=== PATIENT | male | born 1975 | race Caucasian/White ===

== ENCOUNTER 2022-05-13 05:15 | Emergency (ER) | payer BC ==
[2022-05-13] MEDS ORDERED: ACETAMINOPHEN 500 MG TAB ONE (06:25)
[2022-05-13] MEDS ORDERED: CEFTRIAXONE 1000 MG/VIAL ONE (06:25)
[2022-05-13] MEDS ORDERED: MORPHINE 4 MG/ML SYR ONE (06:25)
[2022-05-13] MEDS ORDERED: dexAMETHasone 10 MG/ML VIAL ONE (06:25)
[2022-05-13] MEDS ORDERED: NA CHLORIDE 0.9% 1,000 ML ONE (06:26)
[2022-05-13] MEDS ORDERED: CLINDAMYCIN 900MG/D5W 900 MG/50 ML IVPB IV ONE (06:26)
[2022-05-13] MEDS ORDERED: ONDANSETRON 4 MG/2 ML VIAL ONE ×2 (06:26→07:39)
[2022-05-13 06:37] LABS: Absolute Lymphocytes (CBC) 2.3 K/uL (0.7-4.9); Hematocrit 43.1 % (39.6-49.0); Lymphocytes % 15.4 % (15.3-44.8); MCV 83.4 fL (80-100); MPV 7.2 fL (7.6-11.3); RBC Red Blood Cell Count 5.17 M/uL (4.33-5.43)
[2022-05-13 06:52] LABS: Albumin 3.3 g/dL (3.4-5.0); Bilirubin Total 0.5 mg/dL (0.2-1.0); Potassium 3.7 mmol/L (3.5-5.1); Protein, Total 8.3 g/dL (6.4-8.2)
[2022-05-13] MEDS ORDERED: FAMOTIDINE 20 MG/2 ML VIAL IV ONE (07:39)
--- NOTE | 2022-05-13 07:48 | RAD REPORT ---
EXAM DESCRIPTION: CT - Soft Tissue Neck W/Contr - 05/13/2022 7:12 am CLINICAL HISTORY: Neck pain with sore throat COMPARISON: None. TECHNIQUE: Computed axial tomography of the neck was obtained. 50 cc Isovue 300 was administered in travenously. Coronal and sagittal reconstruction was performed. All CT scans are performed using dose optimization technique as appropriate and may include automated exposure control or mA/KV adjustment according to patient size. FINDINGS: The left tonsil is enlarged. Is loculated 3 centimeter abscess surrounds the left tonsil e xtending inferiorly. The airway shifted towards the right. Remainder of the pharynx, larynx and subglottic trachea are unremarkable. The parotid, submandibular and thyroid glands appear unremarkable. Mild bilateral pleural neck lymphadenopathy probably is reactive in nature Mucus retention cyst left maxillary sinus. Fluid within the ethmoid and sphenoid sinuses. Mucous rete ntion cyst right maxillary sinus IMPRESSION: Left tonsillitis with 3 centimeter peritonsillar abscess the with 3 centimeter peritonsi llar abscess
--- NOTE | 2022-05-13 07:59 | ER ---
Nurse's Notes [facility] Name: Kevin Bowles Age: 46 yrs Sex: Male : 1975 Arrival Date: 05/13/2022 Time: 05:18 Bed 5 Private MD: Diagnosis: Peritonsillar abscess;Elevated white blood cell count Presentation: 05/13 05:45 Chief complaint: Patient states: he has had a sore throat x 3 days which is getting bb worse swallowing his saliva is like swallowing ground glass and he has not been able to eat or drink either, he is taking 2 extra strength tylenol every 4 hours for the pain. Coronavirus screen: At this time, the client does not indicate any symptoms associated with coronavirus-19. Ebola Screen: No symptoms or risks identified at this time. Initial Sepsis Screen: Does the patient meet any 2 criteria? No. Patient's initial sepsis screen is negative. Does the patient have a suspected source of infection? Yes: Other: sore throat. Risk Assessment: Do you want to hurt yourself or someone else? Patient reports no desire to harm self or others. Onset of symptoms was May 10, 2022. 05:45 Method Of Arrival: Ambulatory bb 05:45 Acuity: HUBERT 3 bb Historical: - Allergies: 05:48 Benadryl; bb - Home Meds: 05:48 None [Active]; bb - PMHx: 05:48 None; bb - PSHx: 05:48 None; bb - Immunization history:: Client reports having NOT received the Covid vaccine. - Social history:: Smoking status: Patient reports the use of cigarette tobacco products. Screenin:46 Abuse screen: Denies threats or abuse. Denies injuries from another. Nutritional ph screening: No deficits noted. Tuberculosis screening: No symptoms or risk factors identified. Fall Risk None identified. Assessment: 06:42 Pain: Complains of pain in throat Pain currently is 7 out of 10 on a pain scale. ke1 Respiratory: Airway is patent Respiratory effort is even, unlabored, Breath sounds are clear bilaterally. EENT: Throat is pink has enlarged tonsils. 07:45 Reassessment: Patient appears in no apparent distress at this time. Patient and/or ph family updated on plan of care and expected duration. Pain level reassessed. Patient is alert, oriented x 3, equal unlabored respirations, skin warm/dry/pink. Dr Naqvi at bedside. 08:30 Reassessment: Patient appears in no apparent distress at this time. Patient and/or ss family updated on plan of care and expected duration. Pain level reassessed. Patient is alert, oriented x 3, equal unlabored respirations, skin warm/dry/pink. Pt reports he is feeling much better. Dr. Naqvi wanted patient to stay at least overnight, but patient declined. Neuro: Level of Consciousness is awake, alert, obeys commands. Vital Signs: 05:45 BP 122 / 98; Pulse 117; Resp 16 S; Temp 99.3(O); Pulse Ox 97% on R/A; Weight 106.59 kg bb (R); Height 6 ft. 2 in. (187.96 cm) (R); Pain 10/10; 05:45 Body Mass Index 30.17 (106.59 kg, 187.96 cm) bb ED Course: 05:18 Patient arrived in ED. ja2 05:36 Pearl Allen RN is Primary Nurse. ke1 05:37 Gael Cosby MD is Attending Physician. [facility] 05:48 Triage completed. bb 05:48 Arm band placed on Patient placed in an exam room, on a stretcher, on pulse oximetry. bb 06:42 Inserted saline lock: 20 gauge in right antecubital area, using aseptic technique. ke1 07:14 CT Soft Tissue Neck W/contr In Process Unspecified. EDMS 07:46 Patient has correct armband on for positive identification. Bed in low position. Call ph light in reach. Side rails up X 1. Pulse ox on. NIBP on. Door closed. Noise minimized. Warm blanket given. 07:58 Attending Physician role handed off by Gael Cosby MD rn 07:58 Phoenix Woodson MD is Attending Physician. rn 07:58 Kaila Naqvi MD is Referral Physician. rn 08:29 No provider procedures requiring assistance completed. IV discontinued, intact, ss bleeding controlled, No redness/swelling at site. Pressure dressing applied. Administered Medications: 06:43 Drug: Decadron - Dexamethasone 10 mg Route: IVP; Site: right antecubital; ke1 07:39 Follow up: Response: No adverse reaction; Marked relief of symptoms; Pain is decreased ss 06:43 Drug: Tylenol 1000 mg Route: PO; ke1 06:44 Drug: NS 0.9% 1000 ml Route: IV; Rate: 1 bolus; Site: right antecubital; ke1 06:44 Drug: morphine 4 mg Route: IVP; Infused Over: 4 mins; Site: right antecubital; ke1 07:39 Follow up: Response: No adverse reaction ss 06:44 Drug: Zofran (Ondansetron) 4 mg Route: IVP; Site: right antecubital; ke1 07:39 Follow up: Response: No adverse reaction ss 06:44 Drug: Rocephin (cefTRIAXone) 1 grams Route: IV; Rate: per protocol; Site: right ke1 antecubital; 06:44 Drug: Clindamycin 900 mg Route: IVPB; Infused Over: 30 mins; Site: right antecubital; ke1 07:37 Drug: Zofran (Ondansetron) 4 mg Route: IVP; Site: right antecubital; ss 07:39 Drug: Pepcid (famotidine) 20 mg Route: IVP; Site: right antecubital; ss Medication: 07:46 VIS not applicable for this client. ph Outcome: 07:58 Discharge ordered by . rn 08:29 Discharged to home ambulatory. 08:29 Condition: good 08:29 Discharge instructions given to patient, Instructed on discharge instructions, follow up and referral plans. medication usage, Demonstrated understanding of instructions, follow-up care, medications, Prescriptions given X 2. 08:31 Patient left the ED. ss Signatures: Dispatcher [employer] EDMS Gael Cosby MD MD cha Ballard, Brenda, RN RN bb Nieto, Roman, MD MD rn Smirch, Shelby, RN RN ss Lyn Bradley RN RN ph Alexander, Jessica ja2 Ebrottie, Kouassi, RN RN ke1 Corrections: (The following items were deleted from the chart) 06:42 06:42 Inserted saline lock: 20 gauge in left antecubital area, using aseptic technique. ke1 ke1
--- NOTE | 2022-05-13 07:59 | EDPHYS ---
Physician Documentation [facility] Name: Kevin Bowles Age: 46 yrs Sex: Male : 1975 Arrival Date: 05/13/2022 Time: 05:18 Bed 5 Private MD: ED Physician Phoenix Woodson HPI: 05/13 06:15 This 46 yrs old Male presents to ER via Ambulatory with complaints of Sore tk Throat. 06:15 The patient presents with sore throat. The patient describes throat pain as constant, tk raw. Onset: The symptoms/episode began/occurred 3 day(s) ago. Severity of symptoms: At their worst the symptoms were moderate, in the emergency department the symptoms are unchanged. Modifying factors: The symptoms are alleviated by nothing, the symptoms are aggravated by nothing. Associated signs and symptoms: Pertinent positives: chills, fever. The patient has not experienced similar symptoms in the past. Historical: - Allergies: 05:48 Benadryl; bb - Home Meds: 05:48 None [Active]; bb - PMHx: 05:48 None; bb - PSHx: 05:48 None; bb - Immunization history:: Client reports having NOT received the Covid vaccine. - Social history:: Smoking status: Patient reports the use of cigarette tobacco products. ROS: 06:18 Constitutional: Negative for fever, chills, and weight loss, Eyes: Negative for injury, tk pain, redness, and discharge, Neck: Negative for injury, pain, and swelling, Cardiovascular: Negative for chest pain, palpitations, and edema, Respiratory: Negative for shortness of breath, cough, wheezing, and pleuritic chest pain, Abdomen/GI: Negative for abdominal pain, nausea, vomiting, diarrhea, and constipation, Back: Negative for injury and pain, : Negative for injury, bleeding, discharge, and swelling, MS/Extremity: Negative for injury and deformity, Skin: Negative for injury, rash, and discoloration, Neuro: Negative for headache, weakness, numbness, tingling, and seizure, Psych: Negative for depression, anxiety, suicide ideation, homicidal ideation, and hallucinations, Allergy/Immunology: Negative for hives, rash, and allergies, Endocrine: Negative for neck swelling, polydipsia, polyuria, polyphagia, and marked weight changes, Hematologic/Lymphatic: Negative for swollen nodes, abnormal bleeding, and unusual bruising. 06:18 ENT: Positive for sore throat. Exam: 06:18 Constitutional: This is a well developed, well nourished patient who is awake, alert, tk and in no acute distress. Head/Face: Normocephalic, atraumatic. Eyes: Pupils equal round and reactive to light, extra-ocular motions intact. Lids and lashes normal. Conjunctiva and sclera are non-icteric and not injected. Cornea within normal limits. Periorbital areas with no swelling, redness, or edema. Neck: Trachea midline, no thyromegaly or masses palpated, and no cervical lymphadenopathy. Supple, full range of motion without nuchal rigidity, or vertebral point tenderness. No Meningismus. Chest/axilla: Normal chest wall appearance and motion. Nontender with no deformity. No lesions are appreciated. Cardiovascular: Regular rate and rhythm with a normal S1 and S2. No gallops, murmurs, or rubs. Normal PMI, no JVD. No pulse deficits. Respiratory: Lungs have equal breath sounds bilaterally, clear to auscultation and percussion. No rales, rhonchi or wheezes noted. No increased work of breathing, no retractions or nasal flaring. Abdomen/GI: Soft, non-tender, with normal bowel sounds. No distension or tympany. No guarding or rebound. No evidence of tenderness throughout. Back: No spinal tenderness. No costovertebral tenderness. Full range of motion. Male : Normal genitalia with no discharge or lesions. Skin: Warm, dry with normal turgor. Normal color with no rashes, no lesions, and no evidence of cellulitis. MS/ Extremity: Pulses equal, no cyanosis. Neurovascular intact. Full, normal range of motion. Neuro: Awake and alert, GCS 15, oriented to person, place, time, and situation. Cranial nerves II-XII grossly intact. Motor strength 5/5 in all extremities. Sensory grossly intact. Cerebellar exam normal. Normal gait. Psych: Awake, alert, with orientation to person, place and time. Behavior, mood, and affect are within normal limits. 06:18 ENT: Posterior pharynx: Tonsils: bilaterally enlarged, with erythema, with exudate, Uvula: edematous, erythema, swelling, that is mild, erythema, that is mild, peritonsillar mass, is noted on the right. Vital Signs: 05:45 BP 122 / 98; Pulse 117; Resp 16 S; Temp 99.3(O); Pulse Ox 97% on R/A; Weight 106.59 kg bb (R); Height 6 ft. 2 in. (187.96 cm) (R); Pain 10/10; 05:45 Body Mass Index 30.17 (106.59 kg, 187.96 cm) MDM: 05:37 Patient medically screened. [facility] 06:21 Differential diagnosis: group A strep tonsillitis, mononucleosis, peritonsillar abscess tk chlamydia pharyngitis, neisseria gonorrheoeae pharangitis, retropharyngeal abcess tonsillitis, upper respiratory infection, uvulitis, viral syndrome. Data reviewed: vital signs, nurses notes, lab test result(s), radiologic studies, CT scan. 07:58 ED course: Dr. Naqvi came and performed I\\T\\D, patient feels better, states ok to dc rn home.. 05/13 05:45 Order name: SARS-COV-2 RT PCR (Document "Date of Onset" if Symptomatic); Complete Time: 07:59 05/13 05:45 Order name: Flu; Complete Time: 07:06 ke05/13 06:05 Order name: CBC with Diff; Complete Time: 07:06 [facility] 05/13 06:05 Order name: Comprehensive Metabolic Panel; Complete Time: 07:06 [facility] 05/13 06:11 Order name: CT Soft Tissue Neck W/contr; Complete Time: 07:59 [facility] 05/13 07:30 Order name: NPO; Complete Time: 07:31 [facility] Administered Medications: 06:43 Drug: Decadron - Dexamethasone 10 mg Route: IVP; Site: right antecubital; ke1 07:39 Follow up: Response: No adverse reaction; Marked relief of symptoms; Pain is decreased ss 06:43 Drug: Tylenol 1000 mg Route: PO; ke1 06:44 Drug: NS 0.9% 1000 ml Route: IV; Rate: 1 bolus; Site: right antecubital; ke1 06:44 Drug: morphine 4 mg Route: IVP; Infused Over: 4 mins; Site: right antecubital; ke1 07:39 Follow up: Response: No adverse reaction ss 06:44 Drug: Zofran (Ondansetron) 4 mg Route: IVP; Site: right antecubital; ke1 07:39 Follow up: Response: No adverse reaction ss 06:44 Drug: Rocephin (cefTRIAXone) 1 grams Route: IV; Rate: per protocol; Site: right ke1 antecubital; 06:44 Drug: Clindamycin 900 mg Route: IVPB; Infused Over: 30 mins; Site: right antecubital; ke1 07:37 Drug: Zofran (Ondansetron) 4 mg Route: IVP; Site: right antecubital; ss 07:39 Drug: Pepcid (famotidine) 20 mg Route: IVP; Site: right antecubital; Disposition Summary: 05/13/22 07:58 Discharge Ordered Location: Home rn Problem: new rn Symptoms: have improved rn Condition: Stable rn Diagnosis - Peritonsillar abscess rn - Elevated white blood cell count rn Followup: tk - With: Private Physician - When: 2 - 3 days - Reason: Recheck today's complaints, Continuance of care, Re-evaluation by your physician Followup: tk - With: - When: 2 - 3 days - Reason: Recheck today's complaints, Re-evaluation by your physician Discharge Instructions: - Discharge Summary Sheet tk - Peritonsillar Abscess tk - Peritonsillar Abscess, [id number] tk Forms: - Medication Reconciliation Form rn - Thank You Letter rn - Antibiotic collar turner operator - Prescription Opioid Use rn Prescriptions: - dexamethasone 2 mg Oral tablet - take 1 tablet by ORAL route 2 times per day; 3 tablet; Refills: 0, Product tk Selection Permitted - Clindamycin HCl 300 mg Oral Capsule - take 1 capsule by ORAL route every 6 hours for 10 days; 40 capsule; Refills: 0, tk Product Selection Permitted Signatures: Dispatcher [employer] Gael Rich MD MD cha Ballard, Brenda RN Phoenix Tim MD MD rn Smirch, Shelby, RN RN ss Ebrottie, Kouassi, RN RN ke1
[2022-05-13 08:40] VITALS: BP 122/98; TEMP 99.3; O2SAT 97
--- NOTE | 2022-05-13 11:34 | OP ---
Date of Procedure: 05/13/2022 Surgeon: Kaila Naqvi MD Preoperative Diagnosis: Left peritonsillar abscess. Postoperative Diagnosis: Left peritonsillar abscess. Procedure: Incision and drainage of left peritonsillar abscess. Indication For Procedure: Kevin Bowles presented to the emergency room overnight with clinical findin gs of a peritonsillar abscess with multiple areas of hypolucency around the left tonsil. The patient was treated with antibiotics and steroids and IV fluids per the emergency room and ENT evaluation wa s requested for drainage. Verbal consent was obtained from the patient. Anesthesia: Local injection with 0.25% bupivacaine with epinephrine, a total of 0.5 mL was infused i nto the left soft palate and peritonsillar region. Description Of Procedure: The patient was seated upright and the oral cavity and oropharynx were vis ualized with a headlight. There was a 2-3 cm area of bulging around the left soft palate, felt to re present likely fluid collection. After time for effect of the local anesthetic, a 15-blade scalpel w as used to make a stab incision to the most prominent area of the swelling. A tonsil clamp was used to probe, but no discrete abscess cavity or fluid collection was identified. An 18-gauge needle on a 3 mL syringe was used to probe around this area including an area somewhat more inferiorly, but no d iscrete fluid collection was identified. The procedure was paused for review of the patient's CT sca n. On review, there were multiple areas of hypolucency without discrete rim enhancement. One area o f hypolucency was noted posterior to solid tissue, which may represent a more defined abscess space. I returned to the patient and discussed the image findings and procedural findings. We discussed th e option of continued exploration to focus efforts more inferiorly and posteriorly. We discussed juan gical intervention including incision and drainage under general anesthesia or tonsillectomy under ge neral anesthesia versus continued medical management. The patient stated he has family responsibilit ies and felt it important to return home. The patient also felt significantly improved compared to h is arrival in the emergency room and was motivated to continue medical therapy alone. Disposition: The patient will be discharged home by the emergency room with oral clindamycin and dex amethasone. The patient is instructed to take copious oral fluids and to return to the emergency amisha or contact Dr. Naqvi's office at [facility] if his symptoms are not improving over the next 48 hours or if he experiences worsening of symptoms. Of note, the patient reports a similar conditi on treated in an outside facility several years ago. We discussed that a history of prior peritonsil lar abscess in this setting would be an indication for tonsillectomy. The patient is not interested in discussing surgery in detail at this time. Complications: None. Estimated Blood Loss: Minimal. Surgical Findings: Significant edema of the peritonsillar area without access to the abscess cavity. LEO/JOSE Voice ID: [id number] Report ID: [id number]
== END 2022-05-13 08:31 | disposition home or self-care (01) ==
LOC: ER 05:15
PROC: 0C9PXZZ Drainage of Tonsils, External Approach (ICD-10-PCS; principal; 2022-05-13)
DX: J36 Peritonsillar abscess (principal); D72.829 Elevated white blood cell count, unspecified; Z20.822 Contact with and (suspected) exposure to COVID-19; Z72.0 Tobacco use; Z88.8 Allergy status to other drugs, medicaments and biological substances
CPT/HCPCS: 85025; 36415; 80053; 87804 ×2; 70491; 96375; 96374; 99284; 42700; U0003; Q9967; J1100; J7030; J2405 ×2; J3490